=== PATIENT | female | born 1960 | race Caucasian/White ===

== ENCOUNTER 2019-08-23 17:38 | Emergency (ER) | payer MEDICAID ==
[~2019-08-23] VITALS: Ht 170.2 cm; Wt 56.8 kg
[~2019-08-23 17:38] MED LIST: CITA20TA28 PO; GABA-532 PO; HYDR-2514 PO; HYDR-4383 PO; MACROBID PO; PHEN-786 PO; PHEN-824 PO; TRAZ-91 PO
[2019-08-23 19:03] VITALS: BP 134/57
[2019-08-23] MEDS ORDERED: ondansetron 4mg rapidly disintigrating tab PO ONE (19:20)
[2019-08-23] MEDS ORDERED: HYDROcodone/acetaminophen 5mg/325mg tablet PO ONE ×2 (19:20→23:00)
[2019-08-23] MEDS ORDERED: TETanus/Pertussis (Acell)/Diphther VAC/PF (Tdap-Adult) 0.5ml syringe IMVAC ONE (20:00)
[2019-08-23] MEDS ORDERED: LIDOcaine 1% W/epiNEPHrine 1:200,000 10ml vial IJ ONE ×2 (20:00→20:05)
[2019-08-23] MEDS ORDERED: LIDOcaine 1% W/epiNEPHrine 1:200,000 10ml vial IJ STA (20:10)
[2019-08-23] MEDS ORDERED: LIDOcaine 1% w/epiNEPHrine 1:200,000 30ml vial IJ STA (20:15)
[2019-08-23] MEDS ORDERED: ceFAZolin 1000mg inj IV ONE (21:45)
[2019-08-23] MEDS ORDERED: cefazolin/dext.iso 2gm/100ml 100 ML IV ONE (21:55)
[2019-08-23] MEDS ORDERED: HYDR-3965 PO (21:57)
[2019-08-23] MEDS ORDERED: AMOX-422 PO (21:57)
[2019-08-23] MEDS ORDERED: ONDA4TAB6 PO (21:57)
[2019-08-23] MEDS ORDERED: bacitracin 15gm ointment TP ONE (22:55)
== END 2019-08-23 23:49 | disposition home or self-care (01) ==
LOC: ER 17:39
DX: S81.811A Laceration without foreign body, right lower leg, initial encounter (principal); F32.9 Major depressive disorder, single episode, unspecified; Z56.0 Unemployment, unspecified; Z98.890 Other specified postprocedural states; Z79.899 Other long term (current) drug therapy; Z88.5 Allergy status to narcotic agent; W54.0XXA Bitten by dog, initial encounter; Y93.89 Activity, other specified; Y92.89 Other specified places as the place of occurrence of the external cause; Y99.9 Unspecified external cause status
CPT/HCPCS: 12006; 73590; 90715; 96365; 99284; J0690

== ENCOUNTER 2019-08-29 13:03 | Emergency (ER) | payer MEDICAID ==
[~2019-08-29] VITALS: Ht 170.2 cm; Wt 58.0 kg
[~2019-08-29 13:03] MED LIST changes: +AMOX-422 PO; +HYDR-3965 PO; +ONDA4TAB6 PO
[2019-08-29 13:50] VITALS: BP 115/75
[2019-08-29] MEDS ORDERED: HYDR-3965 PO (16:10)
== END 2019-08-29 16:38 | disposition home or self-care (01) ==
LOC: ER 13:03
DX: S81.811D Laceration without foreign body, right lower leg, subsequent encounter (principal); Z56.0 Unemployment, unspecified; Z98.890 Other specified postprocedural states; Z88.5 Allergy status to narcotic agent; Z79.899 Other long term (current) drug therapy; W54.0XXD Bitten by dog, subsequent encounter
CPT/HCPCS: 99283

== ENCOUNTER 2019-10-30 08:55 | Outpatient (CLI) | payer MEDICAID ==
[~2019-10-30 08:55] MED LIST changes: -AMOX-422 PO; -HYDR-3965 PO
== END 2019-10-30 10:00 | disposition home or self-care (01) ==
LOC: WOUND CARE 08:55
PROVIDERS: ATTEND Surgery
DX: S81.851A Open bite, right lower leg, initial encounter (principal); M19.90 Unspecified osteoarthritis, unspecified site; F32.9 Major depressive disorder, single episode, unspecified; Z87.891 Personal history of nicotine dependence; Z79.899 Other long term (current) drug therapy; Z98.890 Other specified postprocedural states; W54.0XXA Bitten by dog, initial encounter; Y93.89 Activity, other specified; Y92.89 Other specified places as the place of occurrence of the external cause; Y99.8 Other external cause status
CPT/HCPCS: G0463

== ENCOUNTER 2024-12-30 04:14 | Emergency (ER) | payer MEDICARE, MEDICAID ==
[~2024-12-30] VITALS: Ht 172.7 cm; Wt 65.5 kg
[~2024-12-30 04:14] MED LIST changes: +CITA-178 PO; -CITA20TA28 PO
[2024-12-30 04:16] VITALS: BP 149/90; PULSE 91; O2SAT 97
[2024-12-30 05:07] VITALS: RESP 16
--- NOTE | 2024-12-30 05:37 | Physician Documentation ---
History of Present Illness ~ Chief Complaint: Laceration Stated Complaint: FALL Time Seen by MD: 05:37 OK to notify your PCP?: Yes Primary Medical Doctor: MARCIA @ [facility] Source: patient, RN/, RN notes reviewed, old records Mode of Arrival: POV, Ambulatory Exam Limitations: no limitations HPI 64 year old female presents to the emergency department for complaints of laceration to her right ear that happened tonight. She states that laceration occurred while rolling out of bed this evening. Patient states that she hit hear ear on the bed. She states that she had been drinking last night. Patient states that her last tetanus shot was five years ago. She denies any loss of consciousness. Tetanus Within 5 Years: Yes Medication Reconciliation Allergies: Coded Allergies: codeine (Unverified Allergy, Unknown, 12/30/24) Scheduled Citalopram Hydrobromide* (Celexa*), 20 MG PO DAILY, (Reported) Gabapentin (Gabapentin), 1 CAP PO TID Hydrocodone Bit/Acetaminophen* (Vicodin 10-500*), 2 EACH PO BID PRN PAIN, (Reported) Nitrofurantoin/Nitrofuran Mac* (Macrobid*), 100 MG PO BID Phenazopyridine Hcl (Pyridium tablet), 200 MG PO TIDWM Trazodone Hcl* (Trazodone Hcl*), 50 MG PO HS, (Reported) Scheduled PRN Hydrocodone/Acetaminophen (Sloan 5-325 Tablet), 1 TAB PO TID PRN PRN for pain Ondansetron Hcl (Zofran), 1 TAB PO Q6H PRN for nausea/vomiting Phenazopyridine HCl (Pyridium), 1 TAB PO Q8H PRN for dysuria Past Medical History Past Medical History: UTI, Depression Past Surgical History: , orthopedic surgeries Alcohol Use: Alcoholic Drug Use: none Lives with: Other Lives In: Home Occupation: unemployed Review of Systems All Other Systems at this time: Reviewed and Negative ROS As stated above in the HPI, otherwise all systems are reviewed and negative. Physical Exam Vital Signs: RN Vital Signs have been reviewed: Yes, Temperature: 98.3, Source: Oral, Heart Rate: 91, Respiratory Rate: 16, BP: 149/90, Pulse Oximetry: 97, Weight: 65.450 Pulse Oximetry Reflects: adequate oxygenation Physical Exam General: The patient is well developed, well nourished, nontoxic appearing and is in no acute distress. Skin: [place], warm and dry with no rashes. HEENT: 2cm laceration through superior helix of right ear. Head was normocephalic Eyes - pupils equal, round, reactive to light and accommodation. Extraocular movements were intact. Conjunctivae were nonicteric. Ears - bilateral tympanic membranes were normal. The mouth and oropharynx were clear with moist mucous membranes. There were no pharyngeal exudates or erythema. Neck: Supple and nontender. There was no jugular venous distention, lymphadenopathy, thyromegaly or masses. Chest: Clear to auscultation bilaterally without wheezes, rales or rhonchi. No accessory muscle use. No dullness to percussion. Heart: Rate regular and rhythmic. S1, S2. No murmurs. Palpation of the chest wall was normal. No rubs or thrills. Abdomen: Soft, nontender and nondistended. Positive bowel sounds. No guarding or rebound. No hepatosplenomegaly or palpable masses. Extremities: No cyanosis, clubbing or edema. The patient moves all ext remities. Pulses were equal and symmetric. Procedures Laceration/Wound Repair Laceration : Location: right helix complicated laceration Anesthesia: Lidocaine w/ Epi Volume Anesthetic (mls): 1 Prep: scrubbed Repaired: other Wound Repaired With: sutures Suture Size/Type: 4-0, ethilon Number of Superficial Sutures: 4 Layer Closure?: Yes Dressing Applied: simple Tolerated Procedure Well?: yes, no complications Procedure Note Sutures were through and through on the cartilage Progress Results/Orders Reviewed/noted all lab results: Yes Results/Orders Orders - BOB SIBLEY MD Laceration/I&D Tray Set Up (12/30/24 05:38) Completed Orders - BOB SIBLEY MD Tetanus/Pertuss/Diph Acell/Pf (Boostrix (12/30/24 05:40) Lidocaine 1% W/Epi 1:100,000 (Xylocaine (12/30/24 05:50) Medications Received in ER Medications (Trade) Dose Ordered Sig/Сергей Route PRN Reason Start Time Stop Time Status Last Admin Dose Admin (Xylocaine 1%-EPI 1:100,000) 10 ml ONCE ONCE IJ 12/30/24 05:50 12/30/24 05:51 DC 12/30/24 05:47 10 ML (Boostrix vaccine syringe) 0.5 ml ONCE ONCE IMVAC 12/30/24 05:40 12/30/24 05:41 DC 12/30/24 05:50 0.5 ML Vital Signs 12/30/24 12/30/24 04:16 05:07 Temp 98.3 Pulse 91 Resp 14 16 B/P (MAP) 149/90 Pulse Ox 97 Re-Evaluation Re-Evaluation : Re-Evaluation: Improved Progress Patient was seen and examined. Patient was given reassurance. The patient's ear was sutured received tetanus as well as pain medications. Very pleasant patient to work with. She had four sutures placed and because the cartilage was also lacerated stitches should stay in for at least 10 days. This is a complicated laceration repair. Patient does not need any antibiotics has happened in the house it is a clean wound she was healthy otherwise. Departure Time of Disposition: 05:50 Disposition: HOME / SELF CARE / HOMELESS Impression: Primary Impression: Right ear laceration and repair Additional Impression Text Complicated laceration and repair Condition: Stable Discharge Instructions: Laceration Care, Adult, [id number] Additional Instructions: Sutures are to be removed in 10 days. Referrals: NO PRIMARY CARE PROVIDER (PCP) Education Educated: Patient, Family Educated regarding: diagnosis, treatment, need for follow up Signature Scribe Signature: Scribed for Bob Sibley MD by Ivana Ji . 12/30/24 05:46 Attestation: The note accurately reflects work and decisions made by me.Bob Sibley MD 12/30/24 05:37 BOB SIBLEY MD Dec 30, 2024 05:37 IVANA MCGEE Dec 30, 2024 05:47
[2024-12-30] MEDS: LIDOcaine 1% W/epiNEPHrine 1:100,000 20ml vial IJ ONE (05:47)
[2024-12-30] MEDS: TETanus/Pertussis (Acell)/Diphther VAC/PF (Tdap-Adult) 0.5ml syringe IMVAC ONE (05:50)
[2024-12-30 06:47] VITALS: TEMP 98.3
== END 2024-12-30 06:49 | disposition home or self-care (01) ==
LOC: ER 04:14
DX: S01.311A Laceration without foreign body of right ear, initial encounter (principal); Z88.5 Allergy status to narcotic agent; W06.XXXA Fall from bed, initial encounter; Y93.89 Activity, other specified; Y92.89 Other specified places as the place of occurrence of the external cause; Y99.8 Other external cause status
CPT/HCPCS: 12011; 90715; 99284; G0008; J3490; Z7610; 90471